=== PATIENT | male | born 1940 | race Caucasian/White ===

== ENCOUNTER 2023-04-18 03:53 | Inpatient (IN) | payer OTHER, MEDICARE ==
[2023-04-18] MEDS ORDERED: Heparin 25,000 units/D5W 500 ML ONE (04:24)
[2023-04-18] MEDS ORDERED: Ondansetron ODT 4 MG TAB PO PRN (04:33)
[2023-04-18] MEDS ORDERED: Acetaminophen 325 MG TAB PO PRN (04:33)
[2023-04-18] MEDS ORDERED: Calcium Carbonate 500 MG ChewTAB PO PRN (04:33)
[2023-04-18] MEDS ORDERED: Heparin 10,000 UNITS/ 10 ML VIAL SLOW IVP SCH (04:45)
[2023-04-18] MEDS ORDERED: Heparin 25,000 units/D5W 500 ML IVPB SCH (04:45)
[2023-04-18] MEDS ORDERED: Acetaminophen 500 MG TAB ONE (04:52)
[2023-04-18 05:04] LABS: Hematocrit 42.7 % (42.0-52.0); Hemoglobin 14.2 g/dL (14.0-18.0); Platelet Count 154 10x3/uL (130-400)
[2023-04-18 05:05] LABS: #Eosinphils 0.1 thou/uL (0.0-0.7); #Monocytes 0.4 thou/uL (0.11-0.59); #Neutrophils 4.7 thou/uL (1.40-6.50); %Basophils 0.3 % (0.0-1.0); %Eosinophils 1.1 % (0.0-10.0); %Lymphocytes 18.5 % (21.0-51.0); %Monocytes 5.8 % (0.0-10.0); %Neutrophils 73.8 % (42.0-75.0); Hematocrit 43.2 % (42.0-52.0); Hemoglobin 14.2 g/dL (14.0-18.0); Mean Corpuscular HGB CONC 32.9 g/dL (32.0-36.0); Mean Corpuscular Hemoglobin 30.9 pg (27.0-31.0); Mean Corpuscular Volume 94.1 fl (78.0-98.0); Mean Platelet Volume 9.2 fL (7.4-10.4); Platelet Count 144 10x3/uL (130-400); RBC Distribution Width 13.3 % (11.5-14.5); Red Blood Cell (RBC) Count 4.59 mill/uL (4.70-6.10); White Blood Cell (WBC) Count 6.4 10x3/uL (4.8-10.8)
[2023-04-18 05:29] LABS: Anion Gap 12 mmol/L (10-20); BUN (Urea Nitrogen) 20 mg/dL (8.4-25.7); Calc. Creatinine Clearance 0 mL/min (70-130); Calcium 9.4 mg/dL (7.8-10.44); Carbon Dioxide 21 mmol/L (23-31); Chloride 108 mmol/L (98-107); Estimated GFR 84; Glucose 132 mg/dL (83-110); Potassium 4.3 mmol/L (3.5-5.1); Sodium 137 mmol/L (136-145)
[2023-04-18 05:31] LABS: PTT 161.8 sec (22.9-36.1)
[2023-04-18 05:41] LABS: Hemoglobin A1c 5.7 % (4.0-6.0)
[2023-04-18 06:50] VITALS: BMI 36.9
[2023-04-18] MEDS ORDERED: Metoclopramide HCl 10 MG/2 ML VIAL IVP SCH (07:00)
[2023-04-18] MEDS ORDERED: Pharmacy to Dose REMDESIVIR IVPB PRN (07:18)
[2023-04-18 08:33] LABS: ALT (SGPT) 18 U/L (8-55); AST (SGOT) 18 U/L (5-34)
[2023-04-18] MEDS: Famotidine 20 MG TAB PO SCH ×2 (15:23→19:32)
[2023-04-18] MEDS: Tamsulosin HCl 0.4 MG CAP PO SCH (19:34)
[2023-04-18] MEDS: Atorvastatin Calcium 10 MG TAB PO SCH (19:34)
[2023-04-18] MEDS ORDERED: Apixaban 5 MG TAB PO SCH (21:00)
[2023-04-18] MEDS ORDERED: Fioricet 325/50/40 mg Tablet PO SCH (23:00)
[2023-04-19 04:46] LABS: #Basophils 0.1 thou/uL (0.0-0.2); #Eosinphils 0.2 thou/uL (0.0-0.7); #Monocytes 0.5 thou/uL (0.11-0.59); #Neutrophils 2.7 thou/uL (1.40-6.50); %Basophils 0.9 % (0.0-1.0); %Eosinophils 4.2 % (0.0-10.0); %Lymphocytes 39.8 % (21.0-51.0); %Monocytes 8.2 % (0.0-10.0); %Neutrophils 46.5 % (42.0-75.0); Hematocrit 43.8 % (42.0-52.0); Hemoglobin 14.1 g/dL (14.0-18.0); Mean Corpuscular HGB CONC 32.2 g/dL (32.0-36.0); Mean Corpuscular Hemoglobin 30.7 pg (27.0-31.0); Mean Corpuscular Volume 95.2 fl (78.0-98.0); Mean Platelet Volume 9.2 fL (7.4-10.4); Platelet Count 145 10x3/uL (130-400); RBC Distribution Width 13.5 % (11.5-14.5); White Blood Cell (WBC) Count 5.7 10x3/uL (4.8-10.8)
[2023-04-19 05:16] LABS: Anion Gap 16 mmol/L (10-20); BUN (Urea Nitrogen) 20 mg/dL (8.4-25.7); Calc. Creatinine Clearance 82 mL/min (70-130); Calcium 9.4 mg/dL (7.8-10.44); Carbon Dioxide 23 mmol/L (23-31); Chloride 106 mmol/L (98-107); Estimated GFR 64; Glucose 104 mg/dL (83-110); Potassium 4.8 mmol/L (3.5-5.1); Sodium 140 mmol/L (136-145)
[2023-04-19] MEDS: Cholecalciferol (Vitamin D3) 400 UNITS TAB PO SCH (08:15)
[2023-04-19] MEDS: Famotidine 20 MG TAB PO SCH ×2 (08:16→19:58)
[2023-04-19] MEDS: Losartan 25 MG TAB PO SCH (08:16)
[2023-04-19] MEDS: Fish Oil 1,000 MG CAP PO SCH ×2 (08:16)
[2023-04-19] MEDS: Vitamin E 400 UNITS CAP PO SCH (08:17)
[2023-04-19] MEDS: CO Q-10 CAPSULE 100 MG PO SCH (08:17)
[2023-04-19] MEDS: Multivitamin W/ Minerals 1 TAB PO SCH (08:17)
[2023-04-19] MEDS ORDERED: Lidocaine 1% (PF) 30 ML VIAL ONE (13:45)
[2023-04-19] MEDS ORDERED: Iopamidol 370 76% 100 ML VIAL ONE (14:26)
[2023-04-19] MEDS: HYDROcodone/Acetaminophen 5/325 mg Tablet PO PRN ×2 (15:44→23:24)
[2023-04-19] MEDS: Tamsulosin HCl 0.4 MG CAP PO SCH (19:59)
[2023-04-19] MEDS: Atorvastatin Calcium 10 MG TAB PO SCH (19:59)
[2023-04-20 06:43] LABS: #Eosinphils 0.2 thou/uL (0.0-0.7); #Monocytes 0.5 thou/uL (0.11-0.59); %Basophils 0.4 % (0.0-1.0); %Lymphocytes 32.5 % (21.0-51.0); %Monocytes 9.1 % (0.0-10.0); %Neutrophils 53.8 % (42.0-75.0); Hemoglobin 13.6 g/dL (14.0-18.0); Mean Corpuscular HGB CONC 33.2 g/dL (32.0-36.0); Mean Corpuscular Hemoglobin 31.2 pg (27.0-31.0); Mean Platelet Volume 8.8 fL (7.4-10.4); Platelet Count 126 10x3/uL (130-400); RBC Distribution Width 13.4 % (11.5-14.5); Red Blood Cell (RBC) Count 4.36 mill/uL (4.70-6.10); White Blood Cell (WBC) Count 5.5 10x3/uL (4.8-10.8)
[2023-04-20 06:49] LABS: Delete Auto Diff?? NO
[2023-04-20 07:04] LABS: Anion Gap 12 mmol/L (10-20); BUN (Urea Nitrogen) 16 mg/dL (8.4-25.7); Calc. Creatinine Clearance 104 mL/min (70-130); Calcium 9.2 mg/dL (7.8-10.44); Carbon Dioxide 24 mmol/L (23-31); Chloride 107 mmol/L (98-107); Estimated GFR 85; Glucose 110 mg/dL (83-110); Potassium 4.4 mmol/L (3.5-5.1); Sodium 139 mmol/L (136-145)
[2023-04-20] MEDS: Fish Oil 1,000 MG CAP PO SCH ×2 (09:01→09:05)
[2023-04-20] MEDS: Losartan 25 MG TAB PO SCH (09:05)
[2023-04-20] MEDS: Cholecalciferol (Vitamin D3) 400 UNITS TAB PO SCH (09:05)
[2023-04-20] MEDS: CO Q-10 CAPSULE 100 MG PO SCH (09:05)
[2023-04-20] MEDS: Multivitamin W/ Minerals 1 TAB PO SCH (09:05)
[2023-04-20] MEDS: Vitamin E 400 UNITS CAP PO SCH (09:06)
[2023-04-20] MEDS: Famotidine 20 MG TAB PO SCH ×2 (09:08→20:40)
[2023-04-20] MEDS: Tamsulosin HCl 0.4 MG CAP PO SCH (20:37)
[2023-04-20] MEDS: Atorvastatin Calcium 10 MG TAB PO SCH (20:37)
[2023-04-21] MEDS: Vitamin E 400 UNITS CAP PO SCH (09:04)
[2023-04-21] MEDS: Cholecalciferol (Vitamin D3) 400 UNITS TAB PO SCH (09:04)
[2023-04-21] MEDS: Losartan 25 MG TAB PO SCH (09:04)
[2023-04-21] MEDS: CO Q-10 CAPSULE 100 MG PO SCH (09:04)
[2023-04-21] MEDS: Fish Oil 1,000 MG CAP PO SCH ×2 (09:04→09:58)
[2023-04-21] MEDS: Multivitamin W/ Minerals 1 TAB PO SCH (09:05)
[2023-04-21] MEDS: Famotidine 20 MG TAB PO SCH (09:08)
[2023-04-21 12:16] VITALS: BP 134/63; TEMP 98.2
== END 2023-04-21 15:05 | disposition home or self-care (01) | DRG 82 ==
LOC: ERS 03:53 → 2SW 06:23
PROVIDERS: ADMIT Student in an Organized Health Care Education/Training Program; ATTEND Hospitalist
PROC: 8E0ZXY6 Isolation (ICD-10-PCS; 2023-04-18)
PROC: 06H03DZ Insertion of Intraluminal Device into Inferior Vena Cava, Percutaneous Approach (ICD-10-PCS; principal; 2023-04-19)
PROC: B549ZZA Ultrasonography of Inferior Vena Cava, Guidance (ICD-10-PCS; 2023-04-19)
PROC: B5191ZA Fluoroscopy of Inferior Vena Cava using Low Osmolar Contrast, Guidance (ICD-10-PCS; 2023-04-19)
DX: S06.5XAA Traumatic subdural hemorrhage with loss of consciousness status unknown, initial encounter (principal); I26.93 Single subsegmental thrombotic pulmonary embolism without acute cor pulmonale; J12.82 Pneumonia due to coronavirus disease 2019; U07.1 COVID-19; I82.432 Acute embolism and thrombosis of left popliteal vein; R55 Syncope and collapse; I10 Essential (primary) hypertension; R73.03 Prediabetes; N40.0 Benign prostatic hyperplasia without lower urinary tract symptoms; E66.9 Obesity, unspecified; E78.5 Hyperlipidemia, unspecified; I25.10 Atherosclerotic heart disease of native coronary artery without angina pectoris; Z98.890 Other specified postprocedural states; S00.03XA Contusion of scalp, initial encounter; W19.XXXA Unspecified fall, initial encounter; Y92.89 Other specified places as the place of occurrence of the external cause; I25.2 Old myocardial infarction; Z95.5 Presence of coronary angioplasty implant and graft; Z68.36 Body mass index [BMI] 36.0-36.9, adult
CPT/HCPCS: 36415; 37191; 70450; 80048; 83036; 84450; 84460; 85025; 85730; 93306; 93970; 96365; C1769; C1880; C1894; J1644; J2001; Q9967

== ENCOUNTER 2023-04-27 03:10 | Emergency (ER) | payer MEDICARE ==
[2023-04-27 04:13] LABS: #Eosinphils 0.1 thou/uL (0.0-0.7); #Monocytes 0.5 thou/uL (0.11-0.59); #Neutrophils 4.5 thou/uL (1.40-6.50); %Basophils 0.5 % (0.0-1.0); %Eosinophils 1.8 % (0.0-10.0); %Lymphocytes 21.8 % (21.0-51.0); %Monocytes 6.9 % (0.0-10.0); %Neutrophils 68.7 % (42.0-75.0); Hematocrit 42.7 % (42.0-52.0); Hemoglobin 14.3 g/dL (14.0-18.0); Mean Corpuscular HGB CONC 33.5 g/dL (32.0-36.0); Mean Corpuscular Hemoglobin 31.4 pg (27.0-31.0); Mean Corpuscular Volume 93.6 fl (78.0-98.0); Platelet Count 126 10x3/uL (130-400); RBC Distribution Width 13.4 % (11.5-14.5); Red Blood Cell (RBC) Count 4.56 mill/uL (4.70-6.10); White Blood Cell (WBC) Count 6.6 10x3/uL (4.8-10.8)
[2023-04-27 04:29] LABS: INR-International Normal Ratio 1.2; PTT 29.3 sec (22.9-36.1); Prothrombin Time 15.2 sec (12.0-14.7)
[2023-04-27 04:38] LABS: ALT (SGPT) 21 U/L (8-55); AST (SGOT) 19 U/L (5-34); Albumin 3.8 g/dL (3.4-4.8); Alkaline Phosphatase 93 U/L (40-110); Anion Gap 16 mmol/L (10-20); BUN (Urea Nitrogen) 14 mg/dL (8.4-25.7); Calc. Creatinine Clearance 0 mL/min (70-130); Calcium 9.6 mg/dL (7.8-10.44); Carbon Dioxide 18 mmol/L (23-31); Chloride 105 mmol/L (98-107); Estimated GFR 87; Globulin 3.2 g/dL (2.4-3.5); Glucose 124 mg/dL (83-110); Potassium 4.1 mmol/L (3.5-5.1); Sodium 135 mmol/L (136-145)
[2023-04-27 04:39] LABS: Burr Cells SLIGHT = 2-5 cells HPF (0-1); CellaVision Operator ID lab.sh2; Platelet Adequacy Comment Platelets Decreased; Polychromasia SLIGHT = 2-3 cells HPF (0-2)
== END 2023-04-27 09:10 | disposition admitted as inpatient to this hospital (09) ==
LOC: ERS 03:10
DX: R55 Syncope and collapse (principal); I10 Essential (primary) hypertension
CPT/HCPCS: 36415; 80053; 85025; 85610; 85730; 93005

== ENCOUNTER 2023-04-28 10:14 | Inpatient (IN) | payer MEDICARE ==
[2023-04-28] MEDS ORDERED: Senokot S 8.6-50 MG TAB PO PRN (15:07)
[2023-04-28] MEDS ORDERED: Guaifenesin DM 100-10/5 ML UDCUP PO PRN (15:07)
[2023-04-28] MEDS ORDERED: HYDROcodone/Acetaminophen 5/325 mg Tablet PO PRN (15:07)
[2023-04-28] MEDS ORDERED: Communication Order-Pharmacy FS SCH (15:07)
[2023-04-28] MEDS ORDERED: Heparin 25,000 units/D5W 500 ML IVPB SCH (15:15)
[2023-04-28 15:30] VITALS: BMI 36.0
[2023-04-28 15:45] LABS: #Basophils 0.1 thou/uL (0.0-0.2); #Eosinphils 0.3 thou/uL (0.0-0.7); #Monocytes 0.5 thou/uL (0.11-0.59); #Neutrophils 2.7 thou/uL (1.40-6.50); %Basophils 0.9 % (0.0-1.0); %Monocytes 8.6 % (0.0-10.0); %Neutrophils 50.3 % (42.0-75.0); Hematocrit 42.7 % (42.0-52.0); Hemoglobin 14.3 g/dL (14.0-18.0); Mean Corpuscular HGB CONC 33.5 g/dL (32.0-36.0); Mean Corpuscular Volume 92.6 fl (78.0-98.0); Platelet Count 131 10x3/uL (130-400); RBC Distribution Width 13.6 % (11.5-14.5); Red Blood Cell (RBC) Count 4.61 mill/uL (4.70-6.10); White Blood Cell (WBC) Count 5.4 10x3/uL (4.8-10.8)
[2023-04-28 16:07] LABS: Anion Gap 14 mmol/L (10-20); BUN (Urea Nitrogen) 15 mg/dL (8.4-25.7); Calc. Creatinine Clearance 96 mL/min (70-130); Calcium 9.4 mg/dL (7.8-10.44); Carbon Dioxide 20 mmol/L (23-31); Chloride 108 mmol/L (98-107); Estimated GFR 80; Glucose 105 mg/dL (83-110); Potassium 3.8 mmol/L (3.5-5.1); Sodium 138 mmol/L (136-145)
[2023-04-28] MEDS ORDERED: hydrALAZINE 20 MG/ML VIAL SLOW IVP SCH (20:30)
[2023-04-28] MEDS: Melatonin 3 MG TAB PO SCH (20:45)
[2023-04-28] MEDS: Montelukast Sodium 10 mg Tablet PO SCH (20:45)
[2023-04-28] MEDS: Famotidine 20 MG TAB PO SCH (20:45)
[2023-04-28] MEDS: Tamsulosin HCl 0.4 MG CAP PO SCH (20:46)
[2023-04-28] MEDS ORDERED: hydrALAZINE 20 MG/ML VIAL SLOW IVP PRN (20:47)
[2023-04-28] MEDS ORDERED: Simvastatin 20 MG TAB PO SCH (21:00)
[2023-04-28] MEDS: Atorvastatin Calcium 10 MG TAB PO SCH (21:00)
[2023-04-29 04:29] LABS: #Basophils 0.1 thou/uL (0.0-0.2); #Eosinphils 0.4 thou/uL (0.0-0.7); #Monocytes 0.5 thou/uL (0.11-0.59); #Neutrophils 2.4 thou/uL (1.40-6.50); %Lymphocytes 34.9 % (21.0-51.0); %Monocytes 9.2 % (0.0-10.0); %Neutrophils 47.5 % (42.0-75.0); Hematocrit 40.7 % (42.0-52.0); Hemoglobin 13.8 g/dL (14.0-18.0); Mean Corpuscular HGB CONC 33.9 g/dL (32.0-36.0); Mean Corpuscular Hemoglobin 31.3 pg (27.0-31.0); Mean Corpuscular Volume 92.3 fl (78.0-98.0); Mean Platelet Volume 8.5 fL (7.4-10.4); Platelet Count 130 10x3/uL (130-400); RBC Distribution Width 13.6 % (11.5-14.5); Red Blood Cell (RBC) Count 4.41 mill/uL (4.70-6.10)
[2023-04-29 04:35] LABS: Manual Diff?? YES
[2023-04-29 04:58] LABS: Anion Gap 13 mmol/L (10-20); BUN (Urea Nitrogen) 12 mg/dL (8.4-25.7); Calc. Creatinine Clearance 111 mL/min (70-130); Calcium 9.3 mg/dL (7.8-10.44); Carbon Dioxide 19 mmol/L (23-31); Chloride 108 mmol/L (98-107); Estimated GFR 87; Glucose 105 mg/dL (83-110); Potassium 3.3 mmol/L (3.5-5.1); Sodium 137 mmol/L (136-145)
[2023-04-29 05:43] LABS: Burr Cells SLIGHT = 2-5 cells HPF (0-1); CellaVision Operator ID lab.sh2; Eosinophils 9 % (0-10); Lymphocytes 23 % (21-51); Macrocytosis SLIGHT = 6-15 cells HPF (0-5); Monocytes 3 % (0-10); Neutrophil 65 % (42-75); Platelet Adequacy Comment Platelets Normal; Polychromasia SLIGHT = 2-3 cells HPF (0-2); Smudge Cells 22.2 %; Total Cell Count 99
[2023-04-29] MEDS ORDERED: Multivit, Therapeutic 1 TAB PO SCH (09:00)
[2023-04-29] MEDS ORDERED: Potassium Chloride 20 MEQ TAB PO SCH (09:00)
[2023-04-29] MEDS ORDERED: Fish Oil 1,000 MG CAP PO SCH (09:00)
[2023-04-29] MEDS: Losartan 25 MG TAB PO SCH (10:05)
[2023-04-29] MEDS: Famotidine 20 MG TAB PO SCH ×2 (10:05→20:52)
[2023-04-29] MEDS: Cholecalciferol (Vitamin D3) 400 UNITS TAB PO SCH (10:05)
[2023-04-29] MEDS: CO Q-10 CAPSULE 100 MG PO SCH (10:06)
[2023-04-29] MEDS: Heparin 25,000 units/D5W 500 ML IV SCH (16:07)
[2023-04-29] MEDS ORDERED: Warfarin Sodium 5 MG TAB PO SCH (17:00)
[2023-04-29] MEDS: Tamsulosin HCl 0.4 MG CAP PO SCH (20:52)
[2023-04-29] MEDS: Atorvastatin Calcium 10 MG TAB PO SCH (20:52)
[2023-04-29] MEDS: Montelukast Sodium 10 mg Tablet PO SCH (20:52)
[2023-04-29] MEDS: Melatonin 3 MG TAB PO SCH (21:38)
[2023-04-30] MEDS: CO Q-10 CAPSULE 100 MG PO SCH (08:22)
[2023-04-30] MEDS: Losartan 25 MG TAB PO SCH (08:22)
[2023-04-30] MEDS: Cholecalciferol (Vitamin D3) 400 UNITS TAB PO SCH (08:22)
[2023-04-30] MEDS: Famotidine 20 MG TAB PO SCH ×2 (08:22→20:41)
[2023-04-30] MEDS ORDERED: Potassium Chloride 20 MEQ TAB PO SCH (10:00)
[2023-04-30] MEDS ORDERED: Electrolyte Replacement Protocol FS PRN (10:00)
[2023-04-30] MEDS ORDERED: Electrolyte Replacement Protocol 1 EACH FS SCH (10:00)
[2023-04-30 10:18] LABS: Anion Gap 13 mmol/L (10-20); BUN (Urea Nitrogen) 12 mg/dL (8.4-25.7); Calc. Creatinine Clearance 100 mL/min (70-130); Calcium 9.5 mg/dL (7.8-10.44); Carbon Dioxide 22 mmol/L (23-31); Chloride 106 mmol/L (98-107); Estimated GFR 85; Glucose 107 mg/dL (83-110); Magnesium 2.1 mg/dL (1.6-2.6); Potassium 4.1 mmol/L (3.5-5.1); Sodium 137 mmol/L (136-145)
[2023-04-30] MEDS: Heparin 25,000 units/D5W 500 ML IV SCH (13:10)
[2023-04-30 18:11] LABS: Hematocrit 45.1 % (42.0-52.0); Hemoglobin 14.8 g/dL (14.0-18.0); Platelet Count 147 10x3/uL (130-400)
[2023-04-30] MEDS: Melatonin 3 MG TAB PO SCH (20:41)
[2023-04-30] MEDS: Atorvastatin Calcium 10 MG TAB PO SCH (20:41)
[2023-04-30] MEDS: Tamsulosin HCl 0.4 MG CAP PO SCH (20:41)
[2023-04-30] MEDS: Montelukast Sodium 10 mg Tablet PO SCH (20:41)
[2023-04-30] MEDS: Apixaban 5 MG TAB PO SCH (20:41)
[2023-05-01] MEDS: Apixaban 5 MG TAB PO SCH ×2 (08:43→19:57)
[2023-05-01] MEDS: Famotidine 20 MG TAB PO SCH ×2 (08:44→19:56)
[2023-05-01] MEDS: CO Q-10 CAPSULE 100 MG PO SCH (08:44)
[2023-05-01] MEDS: Cholecalciferol (Vitamin D3) 400 UNITS TAB PO SCH (08:44)
[2023-05-01] MEDS: Losartan 25 MG TAB PO SCH (08:45)
[2023-05-01] MEDS: Atorvastatin Calcium 10 MG TAB PO SCH (19:57)
[2023-05-01] MEDS: Montelukast Sodium 10 mg Tablet PO SCH (19:57)
[2023-05-01] MEDS: Melatonin 3 MG TAB PO SCH (19:57)
[2023-05-01] MEDS: Tamsulosin HCl 0.4 MG CAP PO SCH (19:57)
[2023-05-02] MEDS: Apixaban 5 MG TAB PO SCH (09:05)
[2023-05-02] MEDS: Famotidine 20 MG TAB PO SCH (09:05)
[2023-05-02] MEDS: CO Q-10 CAPSULE 100 MG PO SCH (09:05)
[2023-05-02] MEDS: Losartan 25 MG TAB PO SCH (09:05)
[2023-05-02] MEDS: Cholecalciferol (Vitamin D3) 400 UNITS TAB PO SCH (09:07)
[2023-05-02 12:17] VITALS: BP 118/63; TEMP 97.9
[2023-05-07] MEDS ORDERED: Apixaban 5 MG TAB PO SCH (21:00)
== END 2023-05-02 13:02 | disposition home or self-care (01) | DRG 175 ==
LOC: CCU 10:14 → 2SE 05-01 09:13
PROVIDERS: ADMIT Hospitalist; ATTEND Internal Medicine
DX: I26.99 Other pulmonary embolism without acute cor pulmonale (principal); S06.5XAA Traumatic subdural hemorrhage with loss of consciousness status unknown, initial encounter; G47.33 Obstructive sleep apnea (adult) (pediatric); I10 Essential (primary) hypertension; E78.5 Hyperlipidemia, unspecified; I25.2 Old myocardial infarction; I25.10 Atherosclerotic heart disease of native coronary artery without angina pectoris; Z98.890 Other specified postprocedural states; Z79.82 Long term (current) use of aspirin; Z79.84 Long term (current) use of oral hypoglycemic drugs; Z79.899 Other long term (current) drug therapy; Z87.891 Personal history of nicotine dependence; N40.0 Benign prostatic hyperplasia without lower urinary tract symptoms; E87.6 Hypokalemia; E66.9 Obesity, unspecified; W18.39XA Other fall on same level, initial encounter; Z68.36 Body mass index [BMI] 36.0-36.9, adult
CPT/HCPCS: 36415; 36416; 70450; 80048; 83735; 85014; 85018; 85025; 85049; 85730; J0360; J1644